=== PATIENT | male | born 1950 | race Caucasian/White ===

== ENCOUNTER → 2024-02-15 | Outpatient (CLI) | payer OTHER ==
[2024-02-15 10:40] LABS: FREE T4 (FREE THYROXINE) 0.3 ng/dL (0.76-1.46); THYROID STIMULATING HORMONE 81.76 uIU/mL (0.36-3.74)
== END | disposition home or self-care (01) ==
LOC: LABMN 09:47
PROVIDERS: ATTEND Chiropractor
DX: E03.9 Hypothyroidism, unspecified (principal)
CPT/HCPCS: 84439; 84443; 84481